=== PATIENT | female | born 1990 | race Caucasian/White ===

== ENCOUNTER 2017-04-19 21:48 | Inpatient (IN) | payer OTHER ==
[~2017-04-19] VITALS: Ht 149.9 cm; Wt 65.3 kg
[2017-04-19] MEDS ORDERED: PRENATAL 19 TA1 EAC1 PO (22:27)
[2017-04-20] MEDS ORDERED: PEPCID40 MG PO (08:37)
== END 2017-04-20 10:24 | disposition home or self-care (01) | DRG 781 ==
LOC: LDR 21:48
PROC: 4A1HXCZ Monitoring of Products of Conception, Cardiac Rate, External Approach (ICD-10-PCS; principal; 2017-04-19)
DX: O99.612 Diseases of the digestive system complicating pregnancy, second trimester (principal); K52.89 Other specified noninfective gastroenteritis and colitis; Z3A.20 20 weeks gestation of pregnancy

== ENCOUNTER 2022-10-19 18:45 | Emergency (ER) | payer OTHER ==
[~2022-10-19] VITALS: Ht 162.6 cm; Wt 74.8 kg
[~2022-10-19 18:45] MED LIST: PEPCID40 MG PO; PERCOCET 5-3251 EACH PO; PRENATAL 19 TA1 EAC1 PO
== END 2022-10-20 03:16 | disposition home or self-care (01) ==
LOC: ER 18:45
DX: L03.116 Cellulitis of left lower limb (principal); Z88.0 Allergy status to penicillin